=== PATIENT | female | born 1965 | race Caucasian/White ===

== ENCOUNTER 2018-12-31 18:45 | Emergency (ER) | payer OTHER ==
[2018-12-31 20:27] VITALS: BP 141/79
--- NOTE | 2018-12-31 20:43 | UC ---
Lower Extremity/Ankle HPI - HPI Summary HPI Summary: 53 year old female with PMH + for cancer s/p chemo presents with trauma to L foot- today while at work at [employer] patients foot was run over with forklift. + pain, + edema, + bruising, is ambulatory with pain. no prior injuries trauma to foot. + sensation - History of Current Complaint Chief Complaint: UCLowerExtremity Stated Complaint: LEFT FOOT INJURY Time Seen by Provider: 12/31/18 20:24 Hx Obtained From: Patient ?: No Onset/Duration: Sudden Onset, Lasting Hours Severity Initially: Moderate Severity Currently: Moderate Pain Intensity: 6 Pain Scale Used: 0-10 Numeric Aggravating Factor(s): Standing, Ambulation Alleviating Factor(s): Rest Able to Bear Weight: Yes Related History: Occupational Injury - Allergies/Home Medications Allergies/Adverse Reactions: Allergies Allergy/AdvReac Type Severity Reaction Status Date / Time No Known Allergies Allergy Verified 12/31/18 20:17 Home Medications: Home Medications Calcium Carbonate/Vitamin D3 [Calcium 600 + Vit D Tablet] 1 each PO DAILY [History Confirmed 12/31/18] Fluoxetine HCl [Prozac] 20 mg PO DAILY 12/31/18 [History Confirmed 12/31/18] Ibuprofen TAB* [Advil TAB*] 400 mg PO Q6H PRN 12/31/18 [History Confirmed ] Simvastatin [Zocor 5 MG-] 5 mg PO DAILY 12/31/18 [History Confirmed 12/31/18] buPROPion TAB* [Wellbutrin TAB*] 75 mg PO DAILY 12/31/18 [History Confirmed 10/20] PMH/Surg Hx/FS Hx/Imm Hx Previously Healthy: Yes - Surgical History Surgical History: Yes Surgery Procedure, Year, and Place: b/l mastectomy - Social History Alcohol Use: Occasionally Substance Use Type: None Smoking Status (MU): Current Every Day Smoker Type: Cigarettes Amount Used/How Often: 15-20 cigs per day. Length of Time of Smoking/Using Tobacco: 30 yrs Have You Smoked in the Last Year: Yes Review of Systems All Other Systems Reviewed And Are Negative: Yes Constitutional: Positive: Negative Skin: Positive: Bruising, Other - edema Musculoskeletal: Positive: Arthralgia, Decreased ROM, Edema, Myalgia Neurological: Positive: Negative Psychological: Positive: Negative Is Patient Immunocompromised?: No Physical Exam Triage Information Reviewed: Yes Appearance: Well-Appearing, No Pain Distress, Well-Nourished Vital Signs: Initial Vital Signs Temp 97.6 F 12/31/18 20:20 Pulse 59 12/31/18 20:20 Resp 16 12/31/18 20:20 BP 141/79 12/31/18 20:20 Pulse Ox 98 12/31/18 20:20 Vital Signs Reviewed: Yes Eyes: Positive: Conjunctiva Clear Musculoskeletal: Positive: Strength Intact, ROM Intact, Edema @, Other: - TTP over mid 4, 5th metatarsals L foot no malleolar tenderness, SITLT all toes Neurological: Positive: Alert Psychological Exam: Normal Skin: Positive: Other - mild edema L foot, midfoot, concerntrated over 4, 5th metatarsals. Lower Extremity Course/Dx - Course Course Of Treatment: radiograph- Discharge - Discharge Plan Referrals: Lawrence ROCA,Kem Hernandez [Primary Care Provider] -
--- NOTE | 2019-01-02 07:04 | UC ---
- Progress Note Progress Note: Patient Name: GARDENIA TILLMAN Medical Record#: [id number] Ordering Physician: Safia CARTER Acct.#: [id number] : 1965 Age: 53 Sex: F Location: [facility] [place] Exam Date: 12/31/182035 ADM Status: [facility] ER Order Information: FOOT LEFT 3+ VWS Accession Number: [id number] CPT: 92011 Indication: Left foot pain. 3 views of the left foot demonstrates no fracture or dislocation. No other bone or joint abnormality is identified. IMPRESSION: No fracture of the left foot is noted. R1NF Preliminary Imaging Read R1NF <Electronically signed by Leigh Pratt MD in OV> 12/31/182228 Dictated By: Leigh Pratt MD Dictated Date/Time: 12/31/182228 Transcribed Date/Time: 12/31/182227 Copy to: CC:Kem Bravo MD; Safia CARTER; Onel Rios MD Imaging - [facility] Imaging - [facility] [place] [address] [address] ph ([phone]) ph ([phone]) ph ([phone]) This report is only to be considered final once signed by the Provider(s) as displayed in the "<Electronically Signed by >" field (s). Absence of a signature indicates the report is in a draft status and still needs to be finalized. In the event this document was created by someone other than the signing Provider, the individual initiating the document will be listed in the "Entered by:" or "Dictated by:" cornejo. 1 of 1 Course/Dx - Diagnoses Provider Diagnoses: Injury, foot Discharge - Sign-Out/Discharge Documenting (check all that apply): Post-Discharge Follow Up All imaging exams completed and their final reports reviewed: Yes - Discharge Plan Condition: Good Disposition: HOME Patient Education Materials: Contusion in Adults (ED), R.I.C.E. Treatment (ED) Forms: *Work Release Referrals: Lawrence ROCA,Kem Hernandez [Primary Care Provider] - Raymond Churchill MD [Medical Doctor] - Additional Instructions: - post-op shoe for comfort - Motrin/ Tylenol as needed for pain, swelling - Rest, elevate, Ice - work note for tomorrow - If no improvement within 4-5 days, follow up with orthopedics for repeat x- rays - Billing Disposition and Condition Condition: GOOD Disposition: Home
== END 2018-12-31 21:16 | disposition home or self-care (01) ==
LOC: UCCORT 18:45
DX: S90.32XA Contusion of left foot, initial encounter (principal); M79.672 Pain in left foot; R60.0 Localized edema; F17.210 Nicotine dependence, cigarettes, uncomplicated; X58.XXXA Exposure to other specified factors, initial encounter; Y92.9 Unspecified place or not applicable
CPT/HCPCS: 99202; G0463